=== PATIENT | female | born 1945 | race African-American/Black ===

== ENCOUNTER → 2021-07-18 | Outpatient (CLI) | payer OTHER ==
[~2021-07-18] MED LIST: BACLOFEN 10 MG10 MG PO; BACLOFEN 10MG T10 M1 PO; CALCIUM 600 +1 EAC1 PO; CELEBREX 200 M200 MG PO; CLOBETASOL PROP60 G3 TP; CLONIDINE0.1; CYCLOBENZAPRINE10 MG PO; FISH OIL 1,001000 M1 PO; HYDROCODON-ACE1 EAC5 PO; HYDROCODON-ACE1 EAC8 PO; LOVASTAT20; MAGNESIUM100 MG PO; MOBIC7.5 MG PO; NABUMETONE 500500 M1 PO; NORCO 7.5-3251 EACH PO; OXYCONTIN10 MG PO; OXYCONTIN15 MG PO; RANITIDINE 150150 M1 PO; RELAFEN750 MG PO; ULTRAM 50MG TAB50 MG PO; VITAMIN D400 UNI1 PO; [UNRECOGNIZED DRUG - OTHER]
== END ==
LOC: SJCVCIMAG 07:09
PROVIDERS: ATTEND Internal Medicine Cardiovascular Disease
DX: I44.7 Left bundle-branch block, unspecified (principal); R06.00 Dyspnea, unspecified; R93.1 Abnormal findings on diagnostic imaging of heart and coronary circulation; I10 Essential (primary) hypertension; E78.00 Pure hypercholesterolemia, unspecified; R60.9 Edema, unspecified; I25.10 Atherosclerotic heart disease of native coronary artery without angina pectoris; E78.5 Hyperlipidemia, unspecified; Z88.5 Allergy status to narcotic agent; Z88.0 Allergy status to penicillin; Z79.82 Long term (current) use of aspirin; Z79.899 Other long term (current) drug therapy

== ENCOUNTER → 2021-07-29 | Outpatient (CLI) | payer OTHER | LOC: SJCVCIMAG 08:43 | PROVIDERS: ATTEND Internal Medicine Cardiovascular Disease | DX: E78.5 Hyperlipidemia, unspecified (principal); I25.10 Atherosclerotic heart disease of native coronary artery without angina pectoris; R93.1 Abnormal findings on diagnostic imaging of heart and coronary circulation; I10 Essential (primary) hypertension; E78.00 Pure hypercholesterolemia, unspecified; R60.9 Edema, unspecified; Z79.82 Long term (current) use of aspirin; Z79.899 Other long term (current) drug therapy; Z88.8 Allergy status to other drugs, medicaments and biological substances ==

== ENCOUNTER → 2021-09-08 | Outpatient (CLI) | payer OTHER | LOC: SJCVC 10:20 | PROVIDERS: ATTEND Internal Medicine Cardiovascular Disease | DX: E78.00 Pure hypercholesterolemia, unspecified (principal) ==